=== PATIENT | male | born 1955 | race Caucasian/White ===

== ENCOUNTER → 2018-11-30 09:02 | Outpatient (CLI) | payer OTHER, SELFPAY ==
[2018-11-30 09:19] LABS: Bacteria Urine None Seen; RBC Urine None Seen (0-5/HPF); WBC Urine None Seen (0-5/HPF)
[2018-11-30 09:39] LABS: Hematocrit 44.4 % (41-53); Hemoglobin 14.7 g/dL (13.5-17.5); Mean Corpuscular Hemoglobin 28.8 PG (26-34); Mean Corpuscular Volume 87.1 fL (80-100); Platelet Count 311 X10^3/uL (150-400); Red Cell Distribution Width 13.5 % (11.6-14.8); White Blood Cell Count 7.7 X10^3/uL (4.5-11.0)
[2018-11-30 09:44] LABS: Appearance Urine UA CLEAR; Bilirubin Urine UA NEGATIVE (NEGATIVE); Color Urine UA YELLOW; Glucose Urine UA NEGATIVE (Negative); Ketones Urine UA TRACE (NEGATIVE); Leukocyte Esterase Urine UA NEGATIVE (NEGATIVE); Nitrite Urine UA NEGATIVE (Negative); Occult Blood Urine UA NEGATIVE (Negative); Protein Urine UA NEGATIVE (Negative); Urobilinogen Urine UA 0.2 E.U./dL (0.2)
[2018-11-30 09:47] LABS: BUN Creatinine Ratio 27.5 (6-22); Blood Urea Nitrogen 22 mg/dL (9-20); Calcium 9.5 mg/dL (8.4-10.2); Carbon Dioxide 27 mmol/L (22-32); Chloride 103 mmol/L (98-107); Estimated Glomerular Filt Rate > 60.0 mL/min (>60); Glucose 108 mg/dL (80-110); HEMOLYSIS 16 (0-50); Potassium 4.2 mmol/L (3.4-5.1); Sodium 141 mmol/L (137-145)
[2018-11-30 09:52] LABS: Hemoglobin A1C% w Est Avg Glu 5.8 % (4.0-6.0)
[2018-11-30 09:53] LABS: Culture Indicated Urine Cult Not Indicated; Urine Comments Microscopic Normal
[2018-11-30 10:05] LABS: Erythrocyte Sedimentation Rate 3 MM/HR (0-15)
== END ==
PROVIDERS: Visit Provider Orthopaedic Surgery
DX: N39.0 Urinary tract infection, site not specified (principal); R73.9 Hyperglycemia, unspecified; Z01.818 Encounter for other preprocedural examination
CPT/HCPCS: 36415; 80048; 81001; 83036; 85027; 85651

== ENCOUNTER 2018-12-15 09:39 | Inpatient (IN) | payer OTHER, SELFPAY ==
[2018-12-06 13:47] VITALS: BMI 30.4
[2018-12-15] VITALS (14 sets, daily range): BP systolic 95–142; BP diastolic 62–96; PULSE 66–89; RESP 10–20; TEMP 36.3–36.6; O2SAT 92–99; BMI 29.2
--- NOTE | 2018-12-15 | DI.RAD.S_ITS ---
PROCEDURE: XR PELVIS 1-2V INDICATIONS: INTEROPERTATIVE LEFT HIP TECHNIQUE: Intra-operative view of the pelvis and hip acquired. COMPARISON: None. FINDINGS: Bones: Intraoperative devices prior to placement of arthroplasty prostheses are in expected positions. No fractures or suspicious bony lesions. Soft tissues: Overlying surgical retractors are present, along with other intraoperative changes. IMPRESSION: Left total hip arthroplasty with anatomic alignment. Dictated by: Ney Messer M.D. on 12/15/2018 at 18:01 Approved by: Ney Messer M.D. on 12/15/2018 at 18:01
--- NOTE | 2018-12-15 09:07 | DI.RAD.S_ITS ---
PROCEDURE: XR HIP W PEL IF DONE LT 2V INDICATIONS: Postop left total hip arthroplasty TECHNIQUE: AP pelvis and lateral view of the left hip acquired. COMPARISON: None. FINDINGS: Bones: Patient is status post left hip arthroplasty, with hardware components in expected positions. The hip joint appears congruent. The visualized bony structures appear intact. Soft tissues: Overlying postoperative changes are noted. No suspicious soft tissue densities. IMPRESSION: Post left total hip arthroplasty changes with anatomic alignment. Dictated by: Ney Messer M.D. on 12/15/2018 at 18:42 Approved by: Ney Messer M.D. on 12/15/2018 at 18:43
[2018-12-15] MEDS: ACETAMINOPHEN 325 MG TABLET 975 MG PO ×2 (10:22→21:25)
[2018-12-15] MEDS: PREGABALIN 75 MG CAPSULE PO (10:25)
[2018-12-15] MEDS: LACTATED RINGERS 1,000 ML 42 ML IV ×2 (10:43→17:20)
[2018-12-15] MEDS: VANCOMYCIN 1,000 MG/200 ML FROZ.PIGGY 200 MG IV (10:54)
--- NOTE | 2018-12-15 14:45 | SUR.PREOP ---
Surgery delayed with add on case. Patient sleeping, tolerated time well. Void just now. About half of the Vanco in when stopped at 1130. Restarted at [address] Mahajan.
[2018-12-15] MEDS: CEFAZOLIN 2 GM/100 ML FROZ.PIGGY IV ×2 (15:19→22:25)
--- NOTE | 2018-12-15 15:31 | PM.PREOP ---
Pre-operative Note Interval Note History & Physical reviewed/Exam performed by Physician: Yes Changes to H&P: No
--- NOTE | 2018-12-15 15:31 | PM.OP.1 ---
Operative Date/Time/Diagnoses Date of procedure: 12/15/18 Time of procedure: 15:31 Pre-op diagnosis: left hip post traumatic OA Post-op diagnosis: same Procedure & Clinicians Procedure: Left total hip arthroplasty Same procedure as scheduled: Yes Indications: The patient has had progressively worsening left hip pain with radiographic changes consistent with arthritis. Non-operative management has failed and the patient has requested total hip replacement. The risks, benefits and alternatives to surgery were discussed with the patient prior to proceeding. Risks discussed included, but were not limited to, failure to relieve pain, leg length discrepancy, dislocation, stiffness, infection, nerve damage, deep venous thrombosis, pulmonary embolism, stroke, coma, heart attack, permanent paralysis and , as well as the potential need for eventual revision of the prosthetic. Surgeon: Rosalva Mahajan Aviation Maintenance Technician: Gris Joseph Anesthesia Type: General and Spinal Operative Notes Findings: Severe left hip osteoarthritis, good stability, adequate proximal femoral bone for uncemented prosthesis Closure Type: primary Specimen(s): other (Culture canal femoral) Prosthetic devices, grafts, tissues, transplants, or devices: Mhaajan and Nephew 60 R3 cup, 40 mm head +8 sleeve, high offset SMF femoral component size 4 Applied: drain(s) Estimated Blood Loss (mL): 250 Blood products transfused: none Procedure in detail: The patient was seen in the pre-operative area, where the patient identified the left hip as the operative site and this was marked with my initials. The patient received pre-operative antibiotics and was taken to the operating room and placed on the operative table in the right lateral decubitus position after satisfactory anesthesia. A realtime court reporter out was performed. The left leg was prepared from the ankle to the iliac crest with ChloroPrep in the usual fashion and draped through sterile drapes. The hip was approached through an approximately 20 cm incision centered over the greater trochanter and curving gently posteriorly as it went proximally incorporating the patient's previous surgical incision. This was carried sharply to the fascia deepthi, which was divided and retracted with a self retaining retractor. The trochanteric bursa was excised with care being taken to avoid the sciatic nerve, which was identified and protected throughout the case. there was some scarring along the abductors from the patient's prior femoral fracture and some heterotopic ossification at the trochanteric region in the hip abductors. The heterotopic ossification was resected. The short external rotators were incised and the capsulomuscular flap was raised and tagged for later repair. The hip was dislocated, and a femoral neck osteotomy performed approximately 25 mm above the lesser trochanter with a high femoral neck cut for the SMF prosthesis. the femur was meticulously mobilized in order to allow full visualization of the greater trochanter the neck and the lesser trochanter. the cutting jig was specifically used. Retractors were placed around the femur. The canal was opened with a box cutting osteotome, followed by a T handled reamer. The tract of the previous intramedullary nail was carefully defined. There was some scar in the inter medullary canal and along the track and of the membrane which was removed and sent for culture and sensitivity. A combination of the box osteotome measured well as a rongeur was used to remove the neocortex around the previous nails tract. The starting cutting broach was then used, followed by sequential broaching until there was good stability of the broach in the femur. impaction broaches were placed. Retractors were placed to expose the acetabulum. The labrum and central soft tissues were removed. there were large osteophytes anteriorly as well as posteriorly. Reaming was performed initially going up in 2 mm increments, then 1 mm increments until good bite was obtained with an odd sized reamer. The cup 1 mm larger than the last reamer was then inserted using the appropriate anteversion guides. A trial neutral liner was placed. The broach was placed in the canal. A trial head and neck were then placed and the hip relocated and checked for leg length and stability. An intraoperative film confirmed the component position and no evidence of fracture. The patient was stable in the position of sleep, of squatting, and could be put through a range of motion with 45 degrees internal rotation without dislocation. At 90 degrees flexion, internal rotation to 60 was possible before dislocation. This was felt to be satisfactory and the appropriate components were opened, and the trials were removed. it was trialed with a 36 mm head in and cup but the plan was to go up to 40 mm liner. The patient was noted to be short preoperatively and we specifically discussed that he would like if possible for me to slightly lengthen his leg. The acetabular liner was impacted into position. The final stem was then impacted into the prepared femoral canal. A brief Betadine soak was performed while trialing with head options. The hip was meticulously irrigated with normal saline. Finally the femoral head was impacted onto the stem. a +8 mm head was selected which showed sabianism of some of his leg length he, the fairly normal shuck, no tendency towards posterior impingement and normal extension and he was stable at 45? to about 80? of internal rotation at 90? he was stable to about 70? of internal rotation. The acetabulum was cleared of all material and the hip relocated one final time. The capsulomuscular flap was then repaired to the greater trochanter though an awl hole using the tag sutures. The short external rotators were repaired with a black braided nylon. A deep drain was placed and brought out anteriorly. The fascia deepthi was closed with black braided nylon. The subcutaneous layer was closed with barbed sutures and SteriStrips. An Aquacel Ag dressing was applied and the patient was taken to recovery having tolerated the procedure well. Complications: none Condition: stable Disposition: Acute Care Plan for aftercare: The patient will be maintained on a standard total hip replacement protocol with weight bearing as tolerated and posterior hip precautions. The patient will receive Lovenox and sequential compression devices for DVT prophylaxis. The patient will be discharged home when safe for the home environment.
[2018-12-15] MEDS: TRANEXAMIC ACID 1,000 MG VIAL 1000 MG INJ ×2 (15:52→17:22)
--- NOTE | 2018-12-15 16:02 | SUR.OPER ---
Lateral on padded OR bed. Gel axillary roll. Arms secured on padded armboard with pillow supporting top arm. Padded hip positioner braces x4 - anterior and posterior chest and pelvis. Additional gel pad used anterior pelvis. Gel pad under bottom leg from knee to foot and secured with tape over sheet.
[2018-12-15] MEDS: BUPIVACAINE LIPOSOME 266 MG/20 ML VIAL INJ (16:12)
[2018-12-15] MEDS: BUPIVACAINE 0.5% W/ EPI (PF) VIAL 30 ML INJ (16:14)
[2018-12-15] MEDS: fentaNYL 100 MCG/2 ML INJ 50 MCG IV ×2 (18:37→18:47)
[2018-12-15] MEDS: LACTATED RINGERS 1,000 ML 125 ML IV (19:39)
[2018-12-15] MEDS: OXYCODONE IR 5 MG TABLET PO ×2 (19:50→22:59)
[2018-12-15] MEDS: ACYCLOVIR 200 MG CAPSULE PO (21:25)
[2018-12-15] MEDS: ONDANSETRON 4 MG/2 ML INJ IV (21:25)
[2018-12-15] MEDS: DOCUSATE 100 MG CAPSULE PO (21:26)
[2018-12-16] VITALS: BP 105/66; PULSE 88; RESP 16; TEMP 36.9; O2SAT 94
[2018-12-16] MEDS: OXYCODONE IR 5 MG TABLET PO ×5 (02:17→14:22)
[2018-12-16] MEDS: LACTATED RINGERS 1,000 ML 125 ML IV (04:05)
[2018-12-16 05:42] LABS: Hematocrit 37.4 % (41-53); Hemoglobin 12.4 g/dL (13.5-17.5)
[2018-12-16 05:43] VITALS: BP 110/72; PULSE 81; RESP 16; TEMP 36.7; O2SAT 97
[2018-12-16] MEDS: CEFAZOLIN 2 GM/100 ML FROZ.PIGGY IV (06:37)
[2018-12-16 07:36] VITALS: PULSE 72; RESP 16; O2SAT 94
[2018-12-16 08:00] VITALS: BP 115/69; PULSE 77; RESP 16; TEMP 36.9
[2018-12-16] MEDS: ACETAMINOPHEN 325 MG TABLET 975 MG PO ×2 (08:38→14:22)
[2018-12-16] MEDS: DOCUSATE 100 MG CAPSULE PO (08:39)
[2018-12-16] MEDS: FINASTERIDE 5 MG TABLET PO (08:39)
[2018-12-16] MEDS: ENOXAPARIN 40 MG/0.4 ML SYRINGE SUBCUT (08:40)
[2018-12-16] MEDS: ACYCLOVIR 200 MG CAPSULE PO (08:40)
[2018-12-16] MEDS: ATORVASTATIN 20 MG TABLET PO (08:40)
--- NOTE | 2018-12-16 09:41 | PC.NURSE ---
Addendum entered by Esther Anne R.N. 12/16/18 14:36: DC - reviewed dc instructions with pt and family, medications had been picked up earlier, states l hip pain 5 on scale 0/10, given oxycodone 5mg and 975mg tylenol now prior to dc, no drainage noted from old hemovac site, belongings gathered, including cell phone, cane, glasses, tsf to and head usher escorted to family car. Original Note: Addendum entered by Esther Anne R.N. 12/16/18 13:43: DC - after lunch, pt states he would like to dc home this afternoon, hep lock dc'd, Radha had given the scripts to the family to fill earlier this am. Original Note: Addendum entered by Esther Anne R.N. 12/16/18 11:09: INTEG/VITALS - per Radha MARSHALL-C, dc hemovac, removed w/o difficulty, cath tip intact, applied pressure, some serosang drainage continuing, placed 4x4 folded for pressure w/op site over, bp prior to mobilizing with phys therapy 123/79, ivf saline locked. Original Note: Addendum entered by Esther Anne R.N. 12/16/18 09:45: RESP - IS provided by ortho clinic not brought to hospital, family req to bring in. Original Note: AM NOTE -pt is alert, states pain 2-3 on scale 0/10, 2l 98%, removed for breakfast and sat maintained 96%, voiding urinal, no nausea, leslie gen diet, hemovac compressed with serosang drainage in container, aquacell cdi, + flatus, active bt, discussed constipation and use narcotics, given 5mg oxycodone for am phys therapy.
--- NOTE | 2018-12-16 10:25 | P.DS_ITS ---
History of Present Illness Date Patient Seen: 12/16/18 Time Patient Seen: 10:25 Chief complaint: [id number] left Narrative: The patient has had progressively worsening left hip pain with radiographic changes consistent with arthritis. Non-operative management has failed and the patient has requested total hip replacement. The risks, benefits and alternatives to surgery were discussed with the patient prior to proceeding. Risks discussed included, but were not limited to, failure to relieve pain, leg length discrepancy, dislocation, stiffness, infection, nerve damage, deep venous thrombosis, pulmonary embolism, stroke, coma, heart attack, permanent paralysis and , as well as the potential need for eventual revision of the prosthetic. Discharge Providers Date of admission: 12/15/18 09:39 Discharge Date: 12/16/18 Primary care physician: Willard Mosqueda Consults: 12/15/18 09:07 Consult to Anesthesiology Routine Comment: Consulting Provider: Anesthesiologist Reason for consultation: Regional block for post operative pain control 12/15/18 19:34 Consult to Discharge Planning Routine Comment: Consult to Physical Therapy Evaluate & Treat Comment: Physician Instructions: post op JOSH protocol Consult to Respiratory Therapy Evaluate & Treat Comment: Physician Instructions: Evaluate and treat Discharge provider: Gris Joseph PA-C Summary Discharge Diagnosis: s/p left total hip arthroplasty posterior approach BPH Hyperlipidemia Hospital Course: was admitted for left total hip arthroplasty posterior approach with Dr. Mahajan. He consented to procedure. Hospital course was u nremarkable. On postop day 1. Patient was ready to discharge home with family. He is eating and voiding without difficulty or assistance. He has been up and ambulating with physical therapy. His pain is well controlled with oxycodone and Tylenol. He has a significant allergy to aspirin and will be discharged home with Lovenox for VTE prophylaxis. Hemovac drain was removed prior to discharge. Status at Discharge Functional status at discharge: uses cane/walker Exam Vital Signs (past 8 hours): - 12/16/18 05:43 12/16/18 07:36 12/16/18 08:00 Temperature 98.0 F 98.4 F Pulse Rate 81 72 77 Respiratory Rate 16 16 16 Blood Pressure 110/72 115/69 Pulse Oximetry 97 94 Oxygen Delivery Method Room Air Oxygen Flow Rate 2 Narrative Exam Narrative: Patient is sitting up in bed in no acute distress. He is alert and oriented x3. Dressing on the left hip is CDI. Hemovac drain in place. Calves are soft, compressible, nontender bilaterally. Pulses are symmetrical. He is able to actively dorsiflex and plantar flex. His pain was well-controlled last night. No complaints this morning. Objective Labs Result Diagrams: 12/16/18 05:30 Labs: Laboratory Results - last 24 hr 12/16/18 05:30 Hgb 12.4 L Hct 37.4 L Discharge Plan Discharge Plan Patient Disposition: Home Discharge Med Rec/Prescriptions Prescriptions: New acetaminophen 325 mg Tablet 975 mg PO TID Qty: 60 RF: 0 docusate sodium 100 mg Capsule 100 mg PO BID Qty: 60 RF: 0 oxycodone 5 mg Tablet 5 mg PO Q4-6H PRN (Reason: pain, severe) Qty: 45 RF: 0 enoxaparin [Lovenox] 40 mg/0.4 mL Syringe 40 mg subcut DAILY 9 Days RF: 0 Continued atorvastatin 20 mg Tablet 20 mg PO DAILY RF: 0 acyclovir 200 mg Capsule 200 mg PO BID RF: 0 finasteride 5 mg Tablet 5 mg PO DAILY RF: 0 Follow up/Referrals: Rosalva Mahajan MD [Physician] - Provider Discharge Instructions Activity: Posterior hip precautions. Weightbearing as tolerated. Cold/Heat Therapy: as needed Skin/Wound/Dressing Care Report to your healthcare provider any signs of infection, such as:: chills, fever and increased pain Dressing: Leave in place until post op appointment Visit Report/Discharge Packet Instructions: DI for Hip Replacement Discharge Data Primary Care Provider: Willard Mosqueda Attending Provider: Rosalva Mahajan Admit Date/Time: 12/15/18 09:39
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
--- NOTE | 2018-12-16 12:51 | CM.DANOTE ---
Discharge Planning/Care Management CM Discharge Assessment Start: 12/16/18 12:50 Freq: Status: Active Protocol: Document 12/16/18 12:51 ITV (Rec: 12/16/18 12:51 ITV [id number]) Discharge Planning Assessment Advance Directives? No: Declines further information History Provided By Patient Medical Record Prior Living Arrangements House Household Members none Review Status In Process Next Review Type Continued Stay Review Pre-Anesthesia Assessment Start: 12/06/18 13:46 Freq: Status: Complete Protocol: Document 12/06/18 13:47 CAB (Rec: 12/06/18 14:41 CAB [id number]) Pre-Anesthesia Assessment Patient Information Reviewed Via Phone Assessment Assessment Completed With Patient Diagnostic Results BMP/CMP CBC EKG Other Comment A1c. Labs @[facility] 11/30/18, outside ECG scanned to record Primary Care Provider Willard Mosqueda Medical Clearance Received Yes Seen Specialist in Last 12 Months Yes Specialist Seen Orthopedist Comment PCP clearance 11/04/18 scanned to record Primary Language Croatian Real Estate Analyst Required No Height 182.88 cm Weight 101.605 kg Body Mass Index (BMI) 30.4 Hearing Ability Normal Visual Assist Magnifying Glass Dentition Type Teeth, Natural Present Teeth, Missing Barriers to Learning None Hx Anesthesia Reactions No Hx Family Anesthesia Reaction No Hx Malignant Hyperthermia No Hx Blood Transfusions No Anesthesia Review Requested No Color Weigher No alcohol intake current alcohol intake frequency 0-2 drinks per day Smoking Status Current some day smoker Tobacco type cigars Substance Use Type does not use Pain Present Pain Reported Musculoskeletal Symptoms Abnormal Gait Difficulty Walking Joint Pain Muscle Cramps History of Falling (Recent or History of No ) Patient is completely paralyzed or No completely immobile Mental Status Oriented to own ability Is patient on oxygen? No Does patient have PELAEZ/SOB No Hx Sleep Apnea No Currently Taking a Beta Vaishali No Can You Climb a Flight of Stairs Without Yes SOB Hx Chest Pain No Hx SOB No Hx Syncope or Dizziness Yes: Occasional dizziness w/ postional changes Anti-Coagulant Therapy No Has a Business Analysis Analyst No Cardiac Testing No Hx Pacemaker/ICD No Pacemaker Rep Required? No Cardiac Clearance Received Not Applicable Diet Type At Home Regular dysphagia No Urinary Catheter Present No Hx Urinary Self Catheterization No Diabetes No HgbA1C 5.8 Date 11/30/18 Hx Drug Resistant Organism No Presence of External or Internal Medical Yes: Right knee prosthesis, Devices wire in jaw Have you traveled outside the [facility] in the last 30 days? Marital Status Lives With none Prior Living Arrangements House Comment Home on [address], lives part in boat Feels Safe in Current Environment Yes Been Physically Hurt or Threatened By a No Person in Current Environment Do you have thoughts of harming yourself None or others? Are you currently considering suicide? No Do you have a plan to hurt yourself or No Plan others? Do You Have Any Spiritual Beliefs That No May Affect Your HC Choices? Do You Have Any Cultural Practices That No May Affect Your HC Choices? Spiritual Referral None Who Can We Speak to About Patient's Care Family, friends Identifying Code for Release of Patient Declines to issue Information Health Care Proxy/Next of Kin Jonas (son)Yodit (daughter in-law) Health Care Proxy Phone Number [facility]: [phone] [facility]: [phone] Emergency Contact Name Jonas (son)Yodit (daughter in-law) Daphney (daughter) Emergency Contact Phone Number [facility]: [phone] [facility]: [phone] Daphney: Advance Directives? No: Declines further information PAC Instructions Durable medical equipment Medications to take/avoid Nasal antibiotic No ETOH/petroleum product on skin DOS NPO Pre-surgical wash Sturdy shoes/comfortable clothes Do not bring valuables and remove jewelry
--- NOTE | 2018-12-16 12:53 | CM.DANOTE ---
Discharge Planning/Care Management DCP: assessment: case received, EMR reviewed and d/c to home order noted. Pt is a 63 year old male who admitted yesterday for a planned L JOSH/posterior. Surgeon: Dr. Mahajan. PCP: Willard Mosqueda PT notes are not yet available but discussed case now with PT Karuna: she noted that she worked with pt this morning and including stairs and she had cleared him for d/c home. Met now with pt and his daughter in law. Introduced self and role. Pt notes he feels very ready to go home today. He does live on [facility] but he and his son and DIL have booked an Air BNB in [place] where they will stay until pt is ready to return to his home. RN Esther is updated. P: at his point: home today CM Discharge Assessment Start: 12/16/18 12:50 Freq: Status: Active Protocol: Document 12/16/18 12:51 ITV (Rec: 12/16/18 12:51 ITV [id number]) Discharge Planning Assessment Advance Directives? No: Declines further information History Provided By Patient Medical Record Prior Living Arrangements House Household Members none Review Status In Process Next Review Type Continued Stay Review Pre-Anesthesia Assessment Start: 12/06/18 13:46 Freq: Status: Complete Protocol: Document 12/06/18 13:47 CAB (Rec: 12/06/18 14:41 CAB [id number]) Pre-Anesthesia Assessment Patient Information Reviewed Via Phone Assessment Assessment Completed With Patient Diagnostic Results BMP/CMP CBC EKG Other Comment A1c. Labs @[facility] 11/30/18, outside ECG scanned to record Primary Care Provider Willard Mosqueda Medical Clearance Received Yes Seen Specialist in Last 12 Months Yes Specialist Seen Orthopedist Comment PCP clearance 11/04/18 scanned to record Primary Language Serbian Bleacher [employer] Required No Height 182.88 cm Weight 101.605 kg Body Mass Index (BMI) 30.4 Hearing Ability Normal Visual Assist Magnifying Glass Dentition Type Teeth, Natural Present Teeth, Missing Barriers to Learning None Hx Anesthesia Reactions No Hx Family Anesthesia Reaction No Hx Malignant Hyperthermia No Hx Blood Transfusions No Anesthesia Review Requested No Agency Recruiter No alcohol intake current alcohol intake frequency 0-2 drinks per day Smoking Status Current some day smoker Tobacco type cigars Substance Use Type does not use Pain Present Pain Reported Musculoskeletal Symptoms Abnormal Gait Difficulty Walking Joint Pain Muscle Cramps History of Falling (Recent or History of No ) Patient is completely paralyzed or No completely immobile Mental Status Oriented to own ability Is patient on oxygen? No Does patient have PELAEZ/SOB No Hx Sleep Apnea No Currently Taking a Beta Vaishali No Can You Climb a Flight of Stairs Without Yes SOB Hx Chest Pain No Hx SOB No Hx Syncope or Dizziness Yes: Occasional dizziness w/ postional changes Anti-Coagulant Therapy No Has a Zookeeper No Cardiac Testing No Hx Pacemaker/ICD No Pacemaker Rep Required? No Cardiac Clearance Received Not Applicable Diet Type At Home Regular dysphagia No Urinary Catheter Present No Hx Urinary Self Catheterization No Diabetes No HgbA1C 5.8 Date 11/30/18 Hx Drug Resistant Organism No Presence of External or Internal Medical Yes: Right knee prosthesis, Devices wire in jaw Have you traveled outside the [facility] in the last 30 days? Marital Status Lives With none Prior Living Arrangements House Comment Home on [address], lives part in boat Feels Safe in Current Environment Yes Been Physically Hurt or Threatened By a No Person in Current Environment Do you have thoughts of harming yourself None or others? Are you currently considering suicide? No Do you have a plan to hurt yourself or No Plan others? Do You Have Any Spiritual Beliefs That No May Affect Your HC Choices? Do You Have Any Cultural Practices That No May Affect Your HC Choices? Spiritual Referral None Who Can We Speak to About Patient's Care Family, friends Identifying Code for Release of Patient Declines to issue Information Health Care Proxy/Next of Kin Jonas (son)Yodit (daughter in-law) Health Care Proxy Phone Number [facility]: [phone] [facility]: [phone] Emergency Contact Name Jonas (son)Yodit (daughter in-law) Daphney (daughter) Emergency Contact Phone Number [facility]: [phone] [facility]: [phone] Daphney: [phone] Advance Directives? No: Declines further information PAC Instructions Durable medical equipment Medications to take/avoid Nasal antibiotic No ETOH/petroleum product on skin DOS NPO Pre-surgical wash Sturdy shoes/comfortable clothes Do not bring valuables and remove jewelry
== END 2018-12-16 14:38 | disposition home or self-care (01) | DRG 470 ==
PROVIDERS: Admitting Provider Orthopaedic Surgery; PCP Family Medicine Sports Medicine; Visit Provider Orthopaedic Surgery
PROC: 0SRB0JZ Replacement of Left Hip Joint with Synthetic Substitute, Open Approach (ICD-10-PCS; CPT 27130; principal; 2018-12-15 11:45)
DX: M16.52 Unilateral post-traumatic osteoarthritis, left hip (principal); E78.5 Hyperlipidemia, unspecified; Z96.641 Presence of right artificial hip joint; F17.210 Nicotine dependence, cigarettes, uncomplicated
CPT/HCPCS: 36415; 72170; 73502; 85014; 85018; 87070; 87075; 87077; 87186; 87205; 94760; 97116; 97161; 97530; C1776; C9290; J0690; J1100; J1650; J2250; J2405; J2704; J3010; J3370

== ENCOUNTER 2018-12-23 09:45 | Outpatient (RCR) | payer OTHER, SELFPAY ==
[2018-12-15 21:29] VITALS: BMI 29.2
--- NOTE | 2018-12-20 10:35 | PT.OPPOC ---
Current Diagnoses Unilateral post-traumatic osteoarthritis, left hip (12/23/18) Provider Visit Care Team Role Provider Type Willard Mosqueda Primary Care Provider Non-Staff Specialty: Medical Address: [address] , [place], [address] Email: Enzo Lopes PA-C Attending Provider Advanced Fire Extinguisher Charger Specialty: Orthopedic Surgery Address: [address], [place], [address] Email: [email or web address] Plan Of Care PT-OP-T Assessment and Plan Start: 12/20/18 08:56 Freq: Status: Active Protocol: Document 12/23/18 16:33 [facility] (Rec: 12/23/18 16:42 [facility] [email or web address]) Physical Therapy Assessment Assessment Summary Assessment Pt is discharged from this clinic to resume PT with his son and dgt in law in [place]. He is improving with gait with cueing and required min cueing for exercises. He is likely to cont to progress with cont PT Physical Therapy Plan Discharge Physical Therapy Discharge Reasons Patient Request Discharge Comments Pt moving to [place] instead of staying local for rehab Plan of Care Dates Plan of Care Start Date 12/20/18 Plan of Care End Date 02/19/19 Please Sign and Return: I have reviewed this Plan of Care and certify that the skilled therapy services above are required to meet the patient?s needs. Physician Signature Date Printed Name and Credentials Clinical Instructor Signature Printed Name and Credentials
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
--- NOTE | 2018-12-20 19:04 | PT.OPPOC ---
Current Diagnoses Unilateral post-traumatic osteoarthritis, left hip (12/20/18) Difficulty in walking, not elsewhere classified (12/20/18) Weakness (12/20/18) Provider Visit Care Team Role Provider Type Willard Mosqueda Primary Care Provider Non-Staff Specialty: Medical Address: [address] , [place], [address] Email: Enzo Lopes PA-C Attending Provider Advanced Tombstone Polisher Specialty: Orthopedic Surgery Address: [address] [place] [address], [place], [address] Email: [email or web address] Plan Of Care PT-OP-T Assessment and Plan Start: 12/20/18 08:56 Freq: Status: Active Protocol: Document 12/20/18 18:40 [facility] (Rec: 12/21/18 19:03 [facility] [id number]) Physical Therapy Assessment Rehab Potential Rehabilitation Potential Excellent Evaluation Complexity Number of Personal Factors/Comorbidities 3 or More Number of Body Systems Impaired 4 or More Clinical Presentation at Evaluation Evolving Impairments Impairments Activity Tolerance Balance Functional Activities Functional Mobility Gait Pain Posture ROM Soft Tissue Mobility Strength Goals strength Short Term Goal (STG) Pt will be indep with HEP STG Duration 01/19/19 Top Frame Maker Goal (LTG) Pt will have 5/5 LE and will be able to walk on the beach without difficulty. LTG Duration 02/19/19 gait Short Term Goal (STG) Pt will be able to amb without AD with no gait deviations safely. STG Duration 01/19/19 Top Frame Maker Goal (LTG) Pt will be able to amb up/down stairs reciprocally without rail safely. LTG Duration 02/19/19 LEFS Impairment LEFS Short Term Goal (STG) Pt will inc to score of 42 to show improved functional independence. STG Duration 01/19/19 Top Frame Maker Goal (LTG) Pt will inc to score of 60 to demonstrate improved functional ability. LTG Duration 02/19/19 Assessment Summary Assessment Pt is 5 days s/p L JOSH with good pain control, compliance with precautions & exercises & is very motivated to return home to [facility] independently. He has gait limitations and deviations, decreased strength and ROM and overall functional limitations that will require skilled PT to progress pt to return to typical level of function. Physical Therapy Plan Frequency and Duration Frequency of Treatment 2x/Week Duration of Treatment 2 months Plan of Care Start Date 12/30/18 Plan of Care End Date 03/01/19 Therapeutic Interventions Therapeutic Interventions Aquatic Therapy Balance Training Gait Training Home Exercise Program Joint Mobilizations Manual Therapy Neuromuscular Re-education Patient/Caregiver Education Self-Care/Home Management Soft Tissue Mobilization Taping Therapeutic Activities Therapeutic Exercises Modalities Cold Pack/Ice Massage Electric Stimulation Hot Packs Infrared Therapy Iontophoresis Ultrasound Next Visit Focus/Plan Next Note Type Treatment Note Next Visit Plan Advance standing strength and overall L hip strength & balance s/p L JOSH; work on gait mechanics Plan of Care Dates Plan of Care Start Date 12/30/18 Plan of Care End Date 03/01/19 Please Sign and Return: I have reviewed this Plan of Care and certify that the skilled therapy services above are required to meet the patient?s needs. Physician Signature Date Printed Name and Credentials Clinical Instructor Signature Printed Name and Credentials
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
== END 2019-01-09 14:33 | disposition home or self-care (01) ==
LOC: PHYS 09:45
PROVIDERS: PCP Family Medicine Sports Medicine; Visit Provider Physician Assistant
DX: M16.52 Unilateral post-traumatic osteoarthritis, left hip (principal)
CPT/HCPCS: 97110; 97112; 97116; 97162

== ENCOUNTER 2019-03-02 08:15 | Outpatient (RCR) | payer OTHER, SELFPAY ==
[2018-12-15 21:29] VITALS: BMI 29.2
--- NOTE | 2019-01-24 17:29 | PT.OPPOC ---
Current Diagnoses Unilateral primary osteoarthritis, left hip (01/24/19) Provider Visit Care Team Role Provider Type Willard Mosqueda Primary Care Provider Non-Staff Specialty: Medical Address: [address] , [place], [address] Email: Rosalva Mahajan MD Attending Provider Physician Specialty: Orthopedic Surgery Address: [address] [place] [address], [place], [address] Email: [email or web address] Plan Of Care PT-OP-T Assessment and Plan Start: 01/24/19 12:56 Freq: Status: Active Protocol: Document 01/24/19 12:57 [facility] (Rec: 01/24/19 13:00 EA [id number]) Physical Therapy Assessment Rehab Potential Rehabilitation Potential Excellent Evaluation Complexity Number of Personal Factors/Comorbidities 0 Number of Body Systems Impaired 1-2 Clinical Presentation at Evaluation Stable Impairments Impairments Activity Tolerance Functional Mobility Gait Pain ROM Soft Tissue Mobility Strength Goals One Impairment Distance amb Detention Goal (LTG) Patient ambulate > 2 miles LTG Duration 4 wks strength Short Term Goal (STG) Pt will be indep with HEP STG Duration 2 wks Art Historian Goal (LTG) Pt will have 5/5 LE and will be able to walk on the beach without difficulty. LTG Duration 4 wks gait Impairment Impaired mobility Short Term Goal (STG) Pt will be able to amb without AD with no gait deviations safely. STG Duration 2 wk Detention Goal (LTG) Pt will be able to amb up/down stairs reciprocally without rail safely. LTG Duration 4 wks LEFS Impairment LEFS Short Term Goal (STG) Pt will inc to score of 42 to show improved functional independence. STG Duration 2 wks Detention Goal (LTG) Pt will inc to score of 60 to demonstrate improved functional ability. LTG Duration 4 wks Progress Towards Goals Progress Towards Goals Progressing Toward Goals Assessment Summary Assessment Pleasant 63 y/o M patient who is s/p L JOSH 12/15/18 who is referred for continuation of physical threapy. Assessment reveals decreased hip flexors, ABD and hip rotators strength . ROM reveals decreased hip extension and left pelvic rotation. Gait shows increased right pelvic rotation on right stride with decreased left pelvic rotation with tightness to left hip flexors. Instability of SLS to left also noted. In my professional opinion, patient is progressing steady and will continue to benefit with skilled PT to reach his highest functional mobility. Physical Therapy Plan Frequency and Duration Frequency of Treatment 2x/Week Duration of Treatment 2 months Plan of Care Start Date 01/24/19 Plan of Care End Date 03/21/19 Therapeutic Interventions Therapeutic Interventions Aquatic Therapy Balance Training Gait Training Home Exercise Program Joint Mobilizations Manual Therapy Neuromuscular Re-education Patient/Caregiver Education Self-Care/Home Management Soft Tissue Mobilization Taping Therapeutic Activities Therapeutic Exercises Modalities Cold Pack/Ice Massage Electric Stimulation Hot Packs Infrared Therapy Iontophoresis Ultrasound Next Visit Focus/Plan Next Note Type Treatment Note Next Visit Plan Provide HEP images Plan of Care Dates Plan of Care Start Date 01/24/19 Plan of Care End Date 03/21/19 Please Sign and Return: I have reviewed this Plan of Care and certify that the skilled therapy services above are required to meet the patient?s needs. Physician Signature Date Printed Name and Credentials Clinical Instructor Signature Printed Name and Credentials
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
--- NOTE | 2019-01-30 17:41 | PT.OTN ---
Current Diagnoses Unilateral primary osteoarthritis, left hip (01/30/19) Physical Therapy Treatment Note PT-OP-A Visit Information Start: 01/24/19 12:56 Freq: Status: Active Protocol: Document 01/30/19 16:45 EA (Rec: 01/30/19 16:59 EA [id number]) Out-Patient Physical Therapy Visit Information Visit Information Visit Type Treatment Note Visit Start Time 16:00 Visit Stop Time 16:45 Total Visit Minutes 45 Visit Number 2 PT-OP-B Current Condition Start: 01/24/19 12:56 Freq: Status: Active Protocol: Document 01/24/19 16:02 EA (Rec: 01/25/19 14:13 EA [id number]) Current Condition History of Current Condition Onset Date s/p JOSH 12/15/18 Current Complaints hip weakness and and slight pain History of Current Condition Patient is s/p JOSH 12/15/18 and had formal PT at [facility]; states he has great recovery in terms of mobility and pain. He is currently staying at [place] and intended to stay until he recovers fully. Prior Treatments and Tests 1- 5 weeks post hip surgery PT treament at and [place]. 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 Functional Limitations- Mobility/Gait independent with no AD but Limited with long distance ambulation and uneven surfaces Functional Limitations- Work/School Independent Functional Limitations- Recreation/ Limited daily walks to less Hobbies than a mile PT-OP-C Subjective Start: 01/24/19 12:56 Freq: Status: Active Protocol: Document 01/30/19 16:45 EA (Rec: 01/30/19 16:59 EA [id number]) OP-PT Subjective Patient Comments Patient Comments Pt reports hard to initiate movement after in long sitting position. Patient Reported Progress Improving PT-OP-D Balance Start: 01/24/19 12:56 Freq: Status: Active Protocol: Document 01/24/19 17:35 EA (Rec: 01/25/19 14:13 EA [id number]) Balance Tests Single Limb Standing Single Limb- Right > 10 secs Single Limb- Left < 4 secs PT-OP-F Manual Assessment Start: 01/24/19 12:56 Freq: Status: Active Protocol: Document 01/24/19 16:02 EA (Rec: 01/25/19 14:13 EA [id number]) Manual Assessments Soft Tissue Assessment Soft Tissue Mobility Assessment Tight hip flexors, RF. PT-OP-G Mobility & Gait Start: 01/24/19 12:56 Freq: Status: Active Protocol: Document 01/24/19 16:02 EA (Rec: 01/25/19 14:13 EA [id number]) OP Mobility Evaluation Bed Mobility Rolling Indep Supine to and from Sit Indep Transfers Sit to Stand indep Bed to Chair Transfers indep Floor Transfers unable OP Gait Assessment Gait Gait Assistance Required: Independent Distance (Feet) 200 Able to Maintain Weight Bearing Status Yes During Gait Assistive Devices Assistive Device None Orthotic/Prosthetic Devices or Brace: No Gait Deviations General Gait Pattern Decreased Stride Length Factors Limiting Gait Function Factors Limiting Gait Function Decreased Strength Limited Range of Motion Comments Gait Comments Increased right pelvic rotation Stair Climbing Evaluation Evaluation Level of Assist On Stairs Independent Devices Stair Climbing Assistive Devices None Technique/Endurance Stair Climbing Direction Ascend and Descend Stair Climbing Technique Step to Step PT-OP-J Posture/Palpation/Skin Start: 01/24/19 12:56 Freq: Status: Active Protocol: Document 01/24/19 16:02 EA (Rec: 01/25/19 14:13 EA [id number]) Palpation Assessment Location One Palpation Location left hip Palpation Findings Soft Tissue Tightness Tenderness Skin Assessment Incisional Assessment Incision Appearance/Comments Wound is close with no signs of secondary healing. PT-OP-K Range of Motion Start: 01/24/19 12:56 Freq: Status: Active Protocol: Document 01/24/19 16:02 EA (Rec: 01/25/19 14:13 EA [id number]) Hip Goniometric Range of Motion Hip Measured in Degrees Right Active Hip ROM WFL Yes Left Active Testing Position Supine Flexion w/Knee Flexed 90 Extension 5 Abduction 20 External Rotation 30 Hip ROM Limitations Hip ROM Limitations Soft Tissue Tightness Comments pre-cautions Knee Goniometric Range of Motion Knee Measured in Degrees Right Knee ROM WFL Yes Left Knee ROM WFL Yes PT-OP-M Strength Start: 01/24/19 12:56 Freq: Status: Active Protocol: Document 01/24/19 16:02 EA (Rec: 01/25/19 14:13 EA [id number]) Hip Strength Hip Manual Muscle Testing Left Flexion (L2) 3+ Fair+ Extension (S1) 4- Good- Abduction 4- Good- Adduction 4 Good External Rotation 4- Good- Internal Rotation 4- Good- Right Reason Not Measured WFL Knee Strength Knee Manual Muscle Testing Right Flexion (S2) 5 Normal Extension (L3) 5 Normal Left Flexion (S2) 5 Normal Extension (L3) 5 Normal PT-OP-Q Treatments Start: 01/24/19 12:56 Freq: Status: Active Protocol: Document 01/30/19 16:45 EA (Rec: 01/30/19 16:59 EA [id number]) Therapeutic Exercises Supine Exercises 2 Supine Exercise Name Bridge w/ Isomet hip ABD Resistance GTB Reps/Minutes x 10 reps x 2 sets 1 Supine Exercise Name SLR Resistance 2# Reps/Minutes x 10 reps x 2 Sidelying Exercises 3 Sidelying Exercise Name Passive stretch to left hip flexors Reps/Minutes x 30SH x 2 reps 2 Sidelying Exercise Name Hip ABD Resistance 2 lbs Reps/Minutes x 10 reps Comments piullow inbet knees 1 Sidelying Exercise Name Clamshell Reps/Minutes x 15 reps x 2 sets Comments stabilize pelvis Sitting Exercises 2 Sitting Exercise Name Hip IR Resistance Lv2 Reps/Minutes x 10 reps x 2 Comments start from ER to neutral range to prevent full IR 1 Sitting Exercise Name Hip ER Resistance Lv2 Reps/Minutes x 12 reps x 2 Standing Exercises 1 Standing Exercise Name Stairs hip flexors stretch Reps/Minutes x 30 SH x 2 reps squat Standing Exercise Name Side step squart Resistance GTB Reps/Minutes x 12 ft x 2 lines PT-OP-T Assessment and Plan Start: 01/24/19 12:56 Freq: Status: Active Protocol: Document 01/30/19 16:45 EA (Rec: 05/20/19 16:59 EA [id number]) Physical Therapy Assessment Assessment Summary Assessment Tolerated treatment well. Cont. with current plan Physical Therapy Plan Next Visit Focus/Plan Next Note Type Treatment Note Next Visit Plan Provide HEP images
--- NOTE | 2019-02-01 17:30 | PT.OTN ---
Current Diagnoses Unilateral primary osteoarthritis, left hip (02/01/19) Physical Therapy Treatment Note PT-OP-A Visit Information Start: 01/24/19 12:56 Freq: Status: Active Protocol: Document 02/01/19 15:13 EA (Rec: 02/01/19 15:17 EA [id number]) Out-Patient Physical Therapy Visit Information Visit Information Visit Type Treatment Note Visit Start Time 14:30 Visit Stop Time 15:15 Total Visit Minutes 40 Visit Number 3 PT-OP-B Current Condition Start: 01/24/19 12:56 Freq: Status: Active Protocol: Document 01/24/19 16:02 EA (Rec: 01/25/19 14:13 EA [id number]) Current Condition History of Current Condition Onset Date s/p JOSH 12/15/18 Current Complaints hip weakness and and slight pain History of Current Condition Patient is s/p JOSH 12/15/18 and had formal PT at [facility]; states he has great recovery in terms of mobility and pain. He is currently staying at [place] and intended to stay until he recovers fully. Prior Treatments and Tests 1- 5 weeks post hip surgery PT treament at and [place]. 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 Functional Limitations- Mobility/Gait independent with no AD but Limited with long distance ambulation and uneven surfaces Functional Limitations- Work/School Independent Functional Limitations- Recreation/ Limited daily walks to less Hobbies than a mile PT-OP-C Subjective Start: 01/24/19 12:56 Freq: Status: Active Protocol: Document 02/01/19 15:13 EA (Rec: 02/01/19 15:17 EA [id number]) OP-PT Subjective Patient Comments Patient Comments Pt reports compliant with HEP and hip precautions. PT-OP-D Balance Start: 01/24/19 12:56 Freq: Status: Active Protocol: Document 01/24/19 17:35 EA (Rec: 01/25/19 14:13 EA [id number]) Balance Tests Single Limb Standing Single Limb- Right > 10 secs Single Limb- Left < 4 secs PT-OP-F Manual Assessment Start: 01/24/19 12:56 Freq: Status: Active Protocol: Document 01/24/19 16:02 EA (Rec: 01/25/19 14:13 EA [id number]) Manual Assessments Soft Tissue Assessment Soft Tissue Mobility Assessment Tight hip flexors, RF. PT-OP-G Mobility & Gait Start: 01/24/19 12:56 Freq: Status: Active Protocol: Document 01/24/19 16:02 EA (Rec: 01/25/19 14:13 EA [id number]) OP Mobility Evaluation Bed Mobility Rolling Indep Supine to and from Sit Indep Transfers Sit to Stand indep Bed to Chair Transfers indep Floor Transfers unable OP Gait Assessment Gait Gait Assistance Required: Independent Distance (Feet) 200 Able to Maintain Weight Bearing Status Yes During Gait Assistive Devices Assistive Device None Orthotic/Prosthetic Devices or Brace: No Gait Deviations General Gait Pattern Decreased Stride Length Factors Limiting Gait Function Factors Limiting Gait Function Decreased Strength Limited Range of Motion Comments Gait Comments Increased right pelvic rotation Stair Climbing Evaluation Evaluation Level of Assist On Stairs Independent Devices Stair Climbing Assistive Devices None Technique/Endurance Stair Climbing Direction Ascend and Descend Stair Climbing Technique Step to Step PT-OP-J Posture/Palpation/Skin Start: 01/24/19 12:56 Freq: Status: Active Protocol: Document 01/24/19 16:02 EA (Rec: 01/25/19 14:13 EA [id number]) Palpation Assessment Location One Palpation Location left hip Palpation Findings Soft Tissue Tightness Tenderness Skin Assessment Incisional Assessment Incision Appearance/Comments Wound is close with no signs of secondary healing. PT-OP-K Range of Motion Start: 01/24/19 12:56 Freq: Status: Active Protocol: Document 01/24/19 16:02 EA (Rec: 01/25/19 14:13 EA [id number]) Hip Goniometric Range of Motion Hip Measured in Degrees Right Active Hip ROM WFL Yes Left Active Testing Position Supine Flexion w/Knee Flexed 90 Extension 5 Abduction 20 External Rotation 30 Hip ROM Limitations Hip ROM Limitations Soft Tissue Tightness Comments pre-cautions Knee Goniometric Range of Motion Knee Measured in Degrees Right Knee ROM WFL Yes Left Knee ROM WFL Yes PT-OP-M Strength Start: 01/24/19 12:56 Freq: Status: Active Protocol: Document 01/24/19 16:02 EA (Rec: 01/25/19 14:13 EA [id number]) Hip Strength Hip Manual Muscle Testing Left Flexion (L2) 3+ Fair+ Extension (S1) 4- Good- Abduction 4- Good- Adduction 4 Good External Rotation 4- Good- Internal Rotation 4- Good- Right Reason Not Measured WFL Knee Strength Knee Manual Muscle Testing Right Flexion (S2) 5 Normal Extension (L3) 5 Normal Left Flexion (S2) 5 Normal Extension (L3) 5 Normal PT-OP-Q Treatments Start: 01/24/19 12:56 Freq: Status: Active Protocol: Document 02/01/19 15:13 EA (Rec: 02/01/19 15:17 EA [id number]) Cardio Equipment Recumbent Stepper (Sci-Fit) Duration (Minutes) 8 Resistance 3.5 Seat Position 15 Other no hand support Gym Equipment Shuttle Recovery Unilateral Squats Resistance 62 Shuttle Recovery Platform Stable Reps/Time 20 Bilateral Squats Resistance 125 Shuttle Recovery Platform Stable Reps/Time 30 Sport Cord 1 Exercise Details side stegp squat Cord/Resistance blue Reps/Duration x 6 laps Therapeutic Exercises Supine Exercises 2 Supine Exercise Name Bridge w/ Isomet hip ABD Resistance GTB Reps/Minutes x 10 reps x 2 sets 1 Supine Exercise Name SLR Resistance 2# Reps/Minutes x 10 reps x 2 Sidelying Exercises 3 Sidelying Exercise Name Passive stretch to left hip flexors Reps/Minutes x 30SH x 2 reps 2 Sidelying Exercise Name Hip ABD Resistance 2 lbs Reps/Minutes x 10 reps Comments piullow inbet knees 1 Sidelying Exercise Name Clamshell Reps/Minutes x 15 reps x 2 sets Comments stabilize pelvis Sitting Exercises 2 Sitting Exercise Name Hip IR Resistance Lv2 Reps/Minutes x 10 reps x 2 Comments start from ER to neutral range to prevent full IR 1 Sitting Exercise Name Hip ER Resistance Lv2 Reps/Minutes x 12 reps x 2 Standing Exercises 1 Standing Exercise Name Stairs hip flexors stretch Reps/Minutes x 30 SH x 2 reps Other Exercises 1 Other Exercise Name SLS Resistance blue bungee Reps/Minutes x 5 secs x 3 reps PT-OP-T Assessment and Plan Start: 01/24/19 12:56 Freq: Status: Active Protocol: Document 02/01/19 15:13 EA (Rec: 02/01/19 15:17 EA [id number]) Physical Therapy Assessment Assessment Summary Assessment Pt tolerated treamtent with no discomfort noted. Cont with current plan progress as necessary Physical Therapy Plan Next Visit Focus/Plan Next Note Type Treatment Note Next Visit Plan Provide HEP images
--- NOTE | 2019-02-10 11:00 | PT.OTN ---
Current Diagnoses Unilateral primary osteoarthritis, left hip (02/10/19) Physical Therapy Treatment Note PT-OP-A Visit Information Start: 01/24/19 12:56 Freq: Status: Active Protocol: Document 02/10/19 11:00 DLM (Rec: 02/10/19 18:46 DLM [id number]) Out-Patient Physical Therapy Visit Information Visit Information Visit Type Treatment Note Visit Start Time 11:00 Visit Stop Time 11:50 Total Visit Minutes 50 Visit Number 4 Evaluation Information Evaluation Date 01/25/19 Precautions Precautions 2 months reaming for post JOSH pre-caution posterior approach PT-OP-B Current Condition Start: 01/24/19 12:56 Freq: Status: Active Protocol: Document 01/24/19 16:02 EA (Rec: 01/25/19 14:13 EA [id number]) Current Condition History of Current Condition Onset Date s/p Left JOSH 12/15/18 Current Complaints hip weakness and and slight pain History of Current Condition Patient is s/p JOSH 12/15/18 and had formal PT at [facility]; states he has great recovery in terms of mobility and pain. He is currently staying at [place] and intended to stay until he recovers fully. Prior Treatments and Tests 1- 5 weeks post hip surgery PT treament at and [place]. 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 Functional Limitations- Mobility/Gait independent with no AD but Limited with long distance ambulation and uneven surfaces Functional Limitations- Work/School Independent Functional Limitations- Recreation/ Limited daily walks to less Hobbies than a mile PT-OP-C Subjective Start: 01/24/19 12:56 Freq: Status: Active Protocol: Document 02/10/19 11:00 DLM (Rec: 02/10/19 18:46 DLM [id number]) OP-PT Subjective Patient Comments Patient Comments He reports he has not been sleeping with a pillow between his knees. He gets stiff if he sits for any length of time . Patient Reported Progress Improving PT-OP-D Balance Start: 01/24/19 12:56 Freq: Status: Active Protocol: Document 01/24/19 17:35 EA (Rec: 01/25/19 14:13 EA [id number]) Balance Tests Single Limb Standing Single Limb- Right > 10 secs Single Limb- Left < 4 secs PT-OP-F Manual Assessment Start: 01/24/19 12:56 Freq: Status: Active Protocol: Document 01/24/19 16:02 EA (Rec: 01/25/19 14:13 EA [id number]) Manual Assessments Soft Tissue Assessment Soft Tissue Mobility Assessment Tight hip flexors, RF. PT-OP-G Mobility & Gait Start: 01/24/19 12:56 Freq: Status: Active Protocol: Document 01/24/19 16:02 EA (Rec: 01/25/19 14:13 EA [id number]) OP Mobility Evaluation Bed Mobility Rolling Indep Supine to and from Sit Indep Transfers Sit to Stand indep Bed to Chair Transfers indep Floor Transfers unable OP Gait Assessment Gait Gait Assistance Required: Independent Distance (Feet) 200 Able to Maintain Weight Bearing Status Yes During Gait Assistive Devices Assistive Device None Orthotic/Prosthetic Devices or Brace: No Gait Deviations General Gait Pattern Decreased Stride Length Factors Limiting Gait Function Factors Limiting Gait Function Decreased Strength Limited Range of Motion Comments Gait Comments Increased right pelvic rotation Stair Climbing Evaluation Evaluation Level of Assist On Stairs Independent Devices Stair Climbing Assistive Devices None Technique/Endurance Stair Climbing Direction Ascend and Descend Stair Climbing Technique Step to Step PT-OP-J Posture/Palpation/Skin Start: 01/24/19 12:56 Freq: Status: Active Protocol: Document 01/24/19 16:02 EA (Rec: 01/25/19 14:13 EA [id number]) Palpation Assessment Location One Palpation Location left hip Palpation Findings Soft Tissue Tightness Tenderness Skin Assessment Incisional Assessment Incision Appearance/Comments Wound is close with no signs of secondary healing. PT-OP-K Range of Motion Start: 01/24/19 12:56 Freq: Status: Active Protocol: Document 01/24/19 16:02 EA (Rec: 01/25/19 14:13 EA [id number]) Hip Goniometric Range of Motion Hip Measured in Degrees Right Active Hip ROM WFL Yes Left Active Testing Position Supine Flexion w/Knee Flexed 90 Extension 5 Abduction 20 External Rotation 30 Hip ROM Limitations Hip ROM Limitations Soft Tissue Tightness Comments pre-cautions Knee Goniometric Range of Motion Knee Measured in Degrees Right Knee ROM WFL Yes Left Knee ROM WFL Yes PT-OP-M Strength Start: 01/24/19 12:56 Freq: Status: Active Protocol: Document 01/24/19 16:02 EA (Rec: 01/25/19 14:13 EA [id number]) Hip Strength Hip Manual Muscle Testing Left Flexion (L2) 3+ Fair+ Extension (S1) 4- Good- Abduction 4- Good- Adduction 4 Good External Rotation 4- Good- Internal Rotation 4- Good- Right Reason Not Measured WFL Knee Strength Knee Manual Muscle Testing Right Flexion (S2) 5 Normal Extension (L3) 5 Normal Left Flexion (S2) 5 Normal Extension (L3) 5 Normal PT-OP-Q Treatments Start: 01/24/19 12:56 Freq: Status: Active Protocol: Document 02/10/19 11:00 DLM (Rec: 02/10/19 18:46 DLM [id number]) Cardio Equipment Recumbent Stepper (Sci-Fit) Duration (Minutes) 8 Resistance 3.5 Seat Position 15 Other no hand support Gym Equipment Shuttle Recovery Unilateral Squats Resistance 62# Shuttle Recovery Platform Stable Reps/Time 20 Bilateral Squats Resistance 125# Shuttle Recovery Platform Stable Reps/Time 30 Therapeutic Exercises Supine Exercises 3 Supine Exercise Name hip flexor stretch off edge of bed Side left Resistance passive 2 Supine Exercise Name Bridge w/ Isomet hip ABD Resistance L2 exercise band Reps/Minutes 10 reps x 2 sets Prone Exercises 2 Prone Exercise Name hip extension Side bilateral Reps/Minutes x 10 reps each 1 Prone Exercise Name hip flexor stretch Side bilateral Resistance passive Sidelying Exercises 2 Sidelying Exercise Name Hip ABD Resistance 2 lbs Reps/Minutes x 10 reps Comments pillow between knees 1 Sidelying Exercise Name Clamshell Equipment Used pillow between knees Reps/Minutes x 15 reps x 2 sets Comments stabilize pelvis Other Exercises 1 Other Exercise Name SLS Reps/Minutes 5 reps Self-Care/Home Management Treatment Education Other Education education to use pillow between knees if he lies on right side to avoid dislocation PT-OP-T Assessment and Plan Start: 01/24/19 12:56 Freq: Status: Active Protocol: Document 02/10/19 11:00 DLM (Rec: 02/10/19 18:46 DLM [id number]) Physical Therapy Assessment Goals One Impairment Distance amb [facility] Goal (LTG) Patient ambulate > 2 miles LTG Duration 4 wks strength Short Term Goal (STG) Pt will be indep with HEP STG Duration 2 wks [facility] Goal (LTG) Pt will have 5/5 LE and [place] difficulty. LTG Duration 4 wks gait Impairment Impaired mobility Short Term Goal (STG) Pt will be able to amb without AD with no gait deviations safely. STG Duration 2 wk Clinical Pathologist Goal (LTG) Pt will be able to amb up/down stairs reciprocally without rail safely. LTG Duration 4 wks LEFS Impairment LEFS Short Term Goal (STG) Pt will inc to score of 42 to show improved functional independence. STG Duration 2 wks [facility] Goal (LTG) Pt will inc to score of 60 to demonstrate improved functional ability. LTG Duration 4 wks Progress Towards Goals Progress Towards Goals Progressing Toward Goals Assessment Summary Assessment He tolerated treatment session well. His functional strength continue to improve. No increase in pain with exercises. Pt continue to report stiffness in his hip. Physical Therapy Plan Frequency and Duration Frequency of Treatment 2x/Week Duration of Treatment 2 months Plan of Care Start Date 01/24/19 Plan of Care End Date 03/21/19 Therapeutic Interventions Therapeutic Interventions Aquatic Therapy Balance Training Gait Training Home Exercise Program Joint Mobilizations Manual Therapy Neuromuscular Re-education Patient/Caregiver Education Self-Care/Home Management Soft Tissue Mobilization Taping Therapeutic Activities Therapeutic Exercises Modalities Cold Pack/Ice Massage Electric Stimulation Hot Packs Ultrasound Next Visit Focus/Plan Next Note Type Treatment Note Next Visit Plan Provide HEP images
--- NOTE | 2019-02-13 15:15 | PT.OTN ---
Current Diagnoses Unilateral primary osteoarthritis, left hip (02/13/19) Physical Therapy Treatment Note PT-OP-A Visit Information Start: 01/24/19 12:56 Freq: Status: Active Protocol: Document 02/13/19 15:15 DLM (Rec: 02/13/19 17:10 DLM [id number]) Out-Patient Physical Therapy Visit Information Visit Information Visit Type Treatment Note Visit Start Time 15:15 Visit Stop Time 16:00 Total Visit Minutes 45 Visit Number 5 Number of GLUELINE WORKER Visits 0 Evaluation Information Evaluation Date 01/25/19 Precautions Precautions 2 months reaming for post JOSH pre-caution posterior approach PT-OP-B Current Condition Start: 01/24/19 12:56 Freq: Status: Active Protocol: Document 01/24/19 16:02 EA (Rec: 01/25/19 14:13 EA [id number]) Current Condition History of Current Condition Onset Date s/p JOSH 12/15/18 Current Complaints hip weakness and and slight pain History of Current Condition Patient is s/p JOSH 12/15/18 and had formal PT at [facility]; states he has great recovery in terms of mobility and pain. He is currently staying at [place] and intended to stay until he recovers fully. Prior Treatments and Tests 1- 5 weeks post hip surgery PT treament at and [place]. 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 Functional Limitations- Mobility/Gait independent with no AD but Limited with long distance ambulation and uneven surfaces Functional Limitations- Work/School Independent Functional Limitations- Recreation/ Limited daily walks to less Hobbies than a mile PT-OP-C Subjective Start: 01/24/19 12:56 Freq: Status: Active Protocol: Document 02/13/19 15:15 DLM (Rec: 02/13/19 17:10 DLM [id number]) OP-PT Subjective Patient Comments Patient Comments He was able to work out in the yard with no increase in pain . Patient Reported Progress Improving PT-OP-D Balance Start: 01/24/19 12:56 Freq: Status: Active Protocol: Document 01/24/19 17:35 EA (Rec: 01/25/19 14:13 EA [id number]) Balance Tests Single Limb Standing Single Limb- Right > 10 secs Single Limb- Left < 4 secs PT-OP-F Manual Assessment Start: 01/24/19 12:56 Freq: Status: Active Protocol: Document 01/24/19 16:02 EA (Rec: 01/25/19 14:13 EA [id number]) Manual Assessments Soft Tissue Assessment Soft Tissue Mobility Assessment Tight hip flexors, RF. PT-OP-G Mobility & Gait Start: 01/24/19 12:56 Freq: Status: Active Protocol: Document 01/24/19 16:02 EA (Rec: 01/25/19 14:13 EA [id number]) OP Mobility Evaluation Bed Mobility Rolling Indep Supine to and from Sit Indep Transfers Sit to Stand indep Bed to Chair Transfers indep Floor Transfers unable OP Gait Assessment Gait Gait Assistance Required: Independent Distance (Feet) 200 Able to Maintain Weight Bearing Status Yes During Gait Assistive Devices Assistive Device None Orthotic/Prosthetic Devices or Brace: No Gait Deviations General Gait Pattern Decreased Stride Length Factors Limiting Gait Function Factors Limiting Gait Function Decreased Strength Limited Range of Motion Comments Gait Comments Increased right pelvic rotation Stair Climbing Evaluation Evaluation Level of Assist On Stairs Independent Devices Stair Climbing Assistive Devices None Technique/Endurance Stair Climbing Direction Ascend and Descend Stair Climbing Technique Step to Step PT-OP-J Posture/Palpation/Skin Start: 01/24/19 12:56 Freq: Status: Active Protocol: Document 01/24/19 16:02 EA (Rec: 01/25/19 14:13 EA [id number]) Palpation Assessment Location One Palpation Location left hip Palpation Findings Soft Tissue Tightness Tenderness Skin Assessment Incisional Assessment Incision Appearance/Comments Wound is close with no signs of secondary healing. PT-OP-K Range of Motion Start: 01/24/19 12:56 Freq: Status: Active Protocol: Document 01/24/19 16:02 EA (Rec: 01/25/19 14:13 EA [id number]) Hip Goniometric Range of Motion Hip Measured in Degrees Right Active Hip ROM WFL Yes Left Active Testing Position Supine Flexion w/Knee Flexed 90 Extension 5 Abduction 20 External Rotation 30 Hip ROM Limitations Hip ROM Limitations Soft Tissue Tightness Comments pre-cautions Knee Goniometric Range of Motion Knee Measured in Degrees Right Knee ROM WFL Yes Left Knee ROM WFL Yes PT-OP-M Strength Start: 01/24/19 12:56 Freq: Status: Active Protocol: Document 01/24/19 16:02 EA (Rec: 01/25/19 14:13 EA [id number]) Hip Strength Hip Manual Muscle Testing Left Flexion (L2) 3+ Fair+ Extension (S1) 4- Good- Abduction 4- Good- Adduction 4 Good External Rotation 4- Good- Internal Rotation 4- Good- Right Reason Not Measured WFL Knee Strength Knee Manual Muscle Testing Right Flexion (S2) 5 Normal Extension (L3) 5 Normal Left Flexion (S2) 5 Normal Extension (L3) 5 Normal PT-OP-Q Treatments Start: 01/24/19 12:56 Freq: Status: Active Protocol: Document 02/13/19 15:15 DLM (Rec: 02/13/19 17:10 DLM [id number]) Cardio Equipment Recumbent Stepper (Sci-Fit) Duration (Minutes) 8 Resistance 3.5 Seat Position 15 Other no hand support Gym Equipment Shuttle Recovery Unilateral Squats Resistance 62# Shuttle Recovery Platform Stable Reps/Time 20 Bilateral Squats Resistance 125# Shuttle Recovery Platform Stable Reps/Time 30 Therapeutic Exercises Supine Exercises 2 Supine Exercise Name Bridge w/ Isomet hip ABD Resistance L2 exercise band Reps/Minutes 10 reps x 2 sets Prone Exercises 2 Prone Exercise Name hip extension Side bilateral Reps/Minutes 2 x 10 reps each 1 Prone Exercise Name hip flexor stretch Side bilateral Resistance passive Comments prone lying Sidelying Exercises 2 Sidelying Exercise Name Hip ABD Resistance 2 lbs Reps/Minutes x 10 reps Comments pillow between knees 1 Sidelying Exercise Name Clamshell Equipment Used pillow between knees Reps/Minutes x 15 reps x 2 sets Comments stabilize pelvis Other Exercises 1 Other Exercise Name SLS Reps/Minutes 5 reps PT-OP-T Assessment and Plan Start: 01/24/19 12:56 Freq: Status: Active Protocol: Document 02/13/19 15:15 DLM (Rec: 02/13/19 17:10 [facility] [id number]) Physical Therapy Assessment Goals One Impairment Distance amb Shelter Goal (LTG) Patient ambulate > 2 miles LTG Duration 4 wks strength Short Term Goal (STG) Pt will be indep with HEP STG Duration 2 wks Mechanical Laboratory Technician Goal (LTG) Pt will have 5/5 LE and will be able to walk on the beach without difficulty. LTG Duration 4 wks gait Impairment Impaired mobility Short Term Goal (STG) Pt will be able to amb without AD with no gait deviations safely. STG Duration 2 wk Shelter Goal (LTG) Pt will be able to amb up/down stairs reciprocally without rail safely. LTG Duration 4 wks LEFS Impairment LEFS Short Term Goal (STG) Pt will inc to score of 42 to show improved functional independence. STG Duration 2 wks Shelter Goal (LTG) Pt will inc to score of 60 to demonstrate improved functional ability. LTG Duration 4 wks Progress Towards Goals Progress Towards Goals Progressing Toward Goals Physical Therapy Plan Frequency and Duration Frequency of Treatment 2x/Week Duration of Treatment 2 months Plan of Care Start Date 01/24/19 Plan of Care End Date 03/21/19 Therapeutic Interventions Therapeutic Interventions Aquatic Therapy Balance Training Gait Training Home Exercise Program Joint Mobilizations Manual Therapy Neuromuscular Re-education Patient/Caregiver Education Self-Care/Home Management Soft Tissue Mobilization Taping Therapeutic Activities Therapeutic Exercises Modalities Cold Pack/Ice Massage Electric Stimulation Hot Packs Ultrasound Next Visit Focus/Plan Next Note Type Treatment Note Next Visit Plan progress functional strengthening
--- NOTE | 2019-02-23 15:26 | PT.OTN ---
Current Diagnoses Unilateral primary osteoarthritis, left hip (02/23/19) Physical Therapy Treatment Note PT-OP-A Visit Information Start: 01/24/19 12:56 Freq: Status: Active Protocol: Document 02/23/19 15:18 SA (Rec: 02/23/19 15:25 SA [id number]) Out-Patient Physical Therapy Visit Information Visit Information Visit Type Treatment Note Visit Start Time 14:30 Visit Stop Time 15:15 Total Visit Minutes 45 Visit Number 6 Number of TREE CUTTER Visits 1 PT-OP-B Current Condition Start: 01/24/19 12:56 Freq: Status: Active Protocol: Document 01/24/19 16:02 EA (Rec: 01/25/19 14:13 EA [id number]) Current Condition History of Current Condition Onset Date s/p JOSH 12/15/18 Current Complaints hip weakness and and slight pain History of Current Condition Patient is s/p JOSH 12/15/18 and had formal PT at [facility]; states he has great recovery in terms of mobility and pain. He is currently staying at [place] and intended to stay until he recovers fully. Prior Treatments and Tests 1- 5 weeks post hip surgery PT treament at and [place]. 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 Functional Limitations- Mobility/Gait independent with no AD but Limited with long distance ambulation and uneven surfaces Functional Limitations- Work/School Independent Functional Limitations- Recreation/ Limited daily walks to less Hobbies than a mile PT-OP-C Subjective Start: 01/24/19 12:56 Freq: Status: Active Protocol: Document 02/23/19 15:18 SA (Rec: 02/23/19 15:25 SA [id number]) OP-PT Subjective Patient Comments Patient Comments Pt reports he is feeling good. Denies pain but states when he first stands up from seated position he feels stiff. Patient Reported Progress Improving PT-OP-D Balance Start: 01/24/19 12:56 Freq: Status: Active Protocol: Document 01/24/19 17:35 EA (Rec: 01/25/19 14:13 EA [id number]) Balance Tests Single Limb Standing Single Limb- Right > 10 secs Single Limb- Left < 4 secs PT-OP-F Manual Assessment Start: 01/24/19 12:56 Freq: Status: Active Protocol: Document 01/24/19 16:02 EA (Rec: 01/25/19 14:13 EA [id number]) Manual Assessments Soft Tissue Assessment Soft Tissue Mobility Assessment Tight hip flexors, RF. PT-OP-G Mobility & Gait Start: 01/24/19 12:56 Freq: Status: Active Protocol: Document 01/24/19 16:02 EA (Rec: 01/25/19 14:13 EA [id number]) OP Mobility Evaluation Bed Mobility Rolling Indep Supine to and from Sit Indep Transfers Sit to Stand indep Bed to Chair Transfers indep Floor Transfers unable OP Gait Assessment Gait Gait Assistance Required: Independent Distance (Feet) 200 Able to Maintain Weight Bearing Status Yes During Gait Assistive Devices Assistive Device None Orthotic/Prosthetic Devices or Brace: No Gait Deviations General Gait Pattern Decreased Stride Length Factors Limiting Gait Function Factors Limiting Gait Function Decreased Strength Limited Range of Motion Comments Gait Comments Increased right pelvic rotation Stair Climbing Evaluation Evaluation Level of Assist On Stairs Independent Devices Stair Climbing Assistive Devices None Technique/Endurance Stair Climbing Direction Ascend and Descend Stair Climbing Technique Step to Step PT-OP-J Posture/Palpation/Skin Start: 01/24/19 12:56 Freq: Status: Active Protocol: Document 01/24/19 16:02 EA (Rec: 01/25/19 14:13 EA [id number]) Palpation Assessment Location One Palpation Location left hip Palpation Findings Soft Tissue Tightness Tenderness Skin Assessment Incisional Assessment Incision Appearance/Comments Wound is close with no signs of secondary healing. PT-OP-K Range of Motion Start: 01/24/19 12:56 Freq: Status: Active Protocol: Document 01/24/19 16:02 EA (Rec: 01/25/19 14:13 EA [id number]) Hip Goniometric Range of Motion Hip Measured in Degrees Right Active Hip ROM WFL Yes Left Active Testing Position Supine Flexion w/Knee Flexed 90 Extension 5 Abduction 20 External Rotation 30 Hip ROM Limitations Hip ROM Limitations Soft Tissue Tightness Comments pre-cautions Knee Goniometric Range of Motion Knee Measured in Degrees Right Knee ROM WFL Yes Left Knee ROM WFL Yes PT-OP-M Strength Start: 01/24/19 12:56 Freq: Status: Active Protocol: Document 01/24/19 16:02 EA (Rec: 01/25/19 14:13 EA [id number]) Hip Strength Hip Manual Muscle Testing Left Flexion (L2) 3+ Fair+ Extension (S1) 4- Good- Abduction 4- Good- Adduction 4 Good External Rotation 4- Good- Internal Rotation 4- Good- Right Reason Not Measured WFL Knee Strength Knee Manual Muscle Testing Right Flexion (S2) 5 Normal Extension (L3) 5 Normal Left Flexion (S2) 5 Normal Extension (L3) 5 Normal PT-OP-Q Treatments Start: 01/24/19 12:56 Freq: Status: Active Protocol: Document 02/23/19 15:18 SA (Rec: 02/23/19 15:25 SA [email or web address]) Cardio Equipment Recumbent Stepper (Sci-Fit) Duration (Minutes) 8 Resistance 3.7 Seat Position 15 Other no hand support Gym Equipment Shuttle Recovery Unilateral Squats Resistance 62# Shuttle Recovery Platform Stable Reps/Time 2 x 15 Bilateral Squats Resistance 125# Shuttle Recovery Platform Stable Reps/Time 2 x 15 Shuttle Balance red clips Reps/Duration 5 min Comments squats, tandem stance, UE movements Therapeutic Exercises Supine Exercises 3 Supine Exercise Name hip flexor stretch off edge of bed Side left Resistance passive 2 Supine Exercise Name Bridge w/ Isomet hip ABD Resistance L2 exercise band Reps/Minutes 10 reps x 2 sets Prone Exercises 2 Prone Exercise Name hip extension Side bilateral Reps/Minutes 2 x 10 reps each Sidelying Exercises 2 Sidelying Exercise Name Hip ABD Resistance 2 lbs Reps/Minutes x 10 reps Comments pillow between knees Standing Exercises squat Standing Exercise Name Side step squat Resistance GTB Reps/Minutes x 12 ft x 2 lines Other Exercises step ups Equipment Used 6 step Reps/Minutes 20x Comments LLE up/RLE down 1 Other Exercise Name SLS Side left Reps/Minutes 5 reps Comments progressed to foam PT-OP-T Assessment and Plan Start: 01/24/19 12:56 Freq: Status: Active Protocol: Document 02/23/19 15:18 SA (Rec: 02/23/19 15:25 SA [email or web address]) Physical Therapy Assessment Assessment Summary Assessment Review of HEP and hand out provided, pt has TB at home. Consistent with HE[p and progressing well with strength and balance. Physical Therapy Plan Next Visit Focus/Plan Next Note Type Treatment Note Next Visit Plan progress functional strengthening and dynamic balance.
--- NOTE | 2019-02-28 18:44 | PT.OTN ---
Current Diagnoses Unilateral primary osteoarthritis, left hip (02/28/19) Physical Therapy Treatment Note PT-OP-A Visit Information Start: 01/24/19 12:56 Freq: Status: Active Protocol: Document 02/28/19 16:55 HH (Rec: 02/28/19 18:43 HH [email or web address]) Out-Patient Physical Therapy Visit Information Visit Information Visit Type Treatment Note Visit Start Time 16:55 Visit Stop Time 17:40 Total Visit Minutes 45 Visit Number 7 Number of IT SUPPORT CONSULTANT Visits 0 PT-OP-B Current Condition Start: 01/24/19 12:56 Freq: Status: Active Protocol: Document 01/24/19 16:02 EA (Rec: 01/25/19 14:13 EA [id number]) Current Condition History of Current Condition Onset Date s/p JOSH 12/15/18 Current Complaints hip weakness and and slight pain History of Current Condition Patient is s/p JOSH 12/15/18 and had formal PT at [facility]; states he has great recovery in terms of mobility and pain. He is currently staying at [place] and intended to stay until he recovers fully. Prior Treatments and Tests 1- 5 weeks post hip surgery PT treament at and [place]. 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 Functional Limitations- Mobility/Gait independent with no AD but Limited with long distance ambulation and uneven surfaces Functional Limitations- Work/School Independent Functional Limitations- Recreation/ Limited daily walks to less Hobbies than a mile PT-OP-C Subjective Start: 01/24/19 12:56 Freq: Status: Active Protocol: Document 02/28/19 16:55 HH (Rec: 02/28/19 18:43 HH [email or web address]) OP-PT Subjective Patient Comments Patient Comments Im pretty much >90% recovered . Just standing up from prolonged sitting tends to feel stiff at my hip. I've been doing all my ex. Patient Reported Progress Improving PT-OP-D Balance Start: 01/24/19 12:56 Freq: Status: Active Protocol: Document 01/24/19 17:35 EA (Rec: 01/25/19 14:13 EA [id number]) Balance Tests Single Limb Standing Single Limb- Right > 10 secs Single Limb- Left < 4 secs PT-OP-F Manual Assessment Start: 01/24/19 12:56 Freq: Status: Active Protocol: Document 01/24/19 16:02 EA (Rec: 01/25/19 14:13 EA [id number]) Manual Assessments Soft Tissue Assessment Soft Tissue Mobility Assessment Tight hip flexors, RF. PT-OP-G Mobility & Gait Start: 01/24/19 12:56 Freq: Status: Active Protocol: Document 01/24/19 16:02 EA (Rec: 01/25/19 14:13 EA [id number]) OP Mobility Evaluation Bed Mobility Rolling Indep Supine to and from Sit Indep Transfers Sit to Stand indep Bed to Chair Transfers indep Floor Transfers unable OP Gait Assessment Gait Gait Assistance Required: Independent Distance (Feet) 200 Able to Maintain Weight Bearing Status Yes During Gait Assistive Devices Assistive Device None Orthotic/Prosthetic Devices or Brace: No Gait Deviations General Gait Pattern Decreased Stride Length Factors Limiting Gait Function Factors Limiting Gait Function Decreased Strength Limited Range of Motion Comments Gait Comments Increased right pelvic rotation Stair Climbing Evaluation Evaluation Level of Assist On Stairs Independent Devices Stair Climbing Assistive Devices None Technique/Endurance Stair Climbing Direction Ascend and Descend Stair Climbing Technique Step to Step PT-OP-J Posture/Palpation/Skin Start: 01/24/19 12:56 Freq: Status: Active Protocol: Document 01/24/19 16:02 EA (Rec: 01/25/19 14:13 EA [id number]) Palpation Assessment Location One Palpation Location left hip Palpation Findings Soft Tissue Tightness Tenderness Skin Assessment Incisional Assessment Incision Appearance/Comments Wound is close with no signs of secondary healing. PT-OP-K Range of Motion Start: 01/24/19 12:56 Freq: Status: Active Protocol: Document 01/24/19 16:02 EA (Rec: 01/25/19 14:13 EA [id number]) Hip Goniometric Range of Motion Hip Right Active Hip ROM WFL Yes Left Active Testing Position Supine Flexion w/Knee Flexed 90 Extension 5 Abduction 20 External Rotation 30 Hip ROM Limitations Hip ROM Limitations Soft Tissue Tightness Comments pre-cautions Knee Goniometric Range of Motion Knee Right Knee ROM WFL Yes Left Knee ROM WFL Yes PT-OP-M Strength Start: 01/24/19 12:56 Freq: Status: Active Protocol: Document 01/24/19 16:02 EA (Rec: 01/25/19 14:13 EA [id number]) Hip Strength Hip Manual Muscle Testing Left Flexion (L2) 3+ Fair+ Extension (S1) 4- Good- Abduction 4- Good- Adduction 4 Good External Rotation 4- Good- Internal Rotation 4- Good- Right Reason Not Measured WFL Knee Strength Knee Manual Muscle Testing Right Flexion (S2) 5 Normal Extension (L3) 5 Normal Left Flexion (S2) 5 Normal Extension (L3) 5 Normal PT-OP-Q Treatments Start: 01/24/19 12:56 Freq: Status: Active Protocol: Document 02/28/19 16:55 HH (Rec: 02/28/19 18:43 HH [email or web address]) Cardio Equipment Recumbent Stepper (Sci-Fit) Duration (Minutes) 8 Resistance 5 Seat Position 8 Other no hand support Gym Equipment Shuttle Recovery Unilateral Squats Resistance 75# Shuttle Recovery Platform Stable Reps/Time 2 x 15 Bilateral Squats Resistance 150# Shuttle Recovery Platform Stable Reps/Time 2 x 15 Therapeutic Exercises Standing Exercises mongolian deadlift Standing Exercise Name single leg Side bilateral Equipment Used on blue foam Reps/Minutes 7 mins Comments cues on hip hinge hip CAR Side bilateral Equipment Used foot step over cones Reps/Minutes 8 mins Comments cues for slow active ROM Other Exercises step ups Side bilateral Equipment Used 6 - 8 'step Reps/Minutes 10 mins Comments cues on slow movements , LLE up/RLE down 1 Other Exercise Name SLS Reps/Minutes 5 mins Comments blue foam, and reach for cones crossing midline PT-OP-T Assessment and Plan Start: 01/24/19 12:56 Freq: Status: Active Protocol: Document 02/28/19 16:55 HH (Rec: 02/28/19 18:43 HH [email or web address]) Physical Therapy Assessment Assessment Summary Assessment pt cont progress. His single leg balance is quite close between R and L. Still c/o slight discomfort during single leg step on 8 inch step . Pt states he thinks he is ready to be d/c for next visit since he thinks he is >90% recovered. Willing to review HEP and precautions for next visit. Physical Therapy Plan Next Visit Focus/Plan Next Note Type Discharge Summary Next Visit Plan progress functional strengthening and dynmaic balance.
--- NOTE | 2019-03-02 18:34 | PT.OTN ---
Current Diagnoses Unilateral primary osteoarthritis, left hip (03/02/19) Physical Therapy Treatment Note PT-OP-A Visit Information Start: 01/24/19 12:56 Freq: Status: Active Protocol: Document 03/02/19 08:15 HH (Rec: 03/02/19 18:34 HH [email or web address]) Out-Patient Physical Therapy Visit Information Visit Information Visit Type Discharge Summary Visit Start Time 08:15 Visit Stop Time 09:00 Total Visit Minutes 45 Visit Number 8 Number of BUYER BROKER Visits 0 PT-OP-B Current Condition Start: 01/24/19 12:56 Freq: Status: Active Protocol: Document 01/24/19 16:02 EA (Rec: 01/25/19 14:13 EA [id number]) Current Condition History of Current Condition Onset Date s/p JOSH 12/15/18 Current Complaints hip weakness and and slight pain History of Current Condition Patient is s/p JOSH 12/15/18 and had formal PT at [facility] [place]; states he has great recovery in terms of mobility and pain. He is currently staying at [place] and intended to stay until he recovers fully. Prior Treatments and Tests 1- 5 weeks post hip surgery PT treament at and [place]. 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 Functional Limitations- Mobility/Gait independent with no AD but Limited with long distance ambulation and uneven surfaces Functional Limitations- Work/School Independent Functional Limitations- Recreation/ Limited daily walks to less Hobbies than a mile PT-OP-C Subjective Start: 01/24/19 12:56 Freq: Status: Active Protocol: Document 03/02/19 08:15 HH (Rec: 03/02/19 18:34 HH [email or web address]) OP-PT Subjective Patient Comments Patient Comments I am ready to be dischaged now. Im doing good. Patient Reported Progress Improving PT-OP-D Balance Start: 01/24/19 12:56 Freq: Status: Active Protocol: Document 03/02/19 08:15 HH (Rec: 03/02/19 18:34 HH [email or web address]) Balance Tests Single Limb Standing Single Limb- Right >1 min Single Limb- Left > 1 min PT-OP-F Manual Assessment Start: 01/24/19 12:56 Freq: Status: Active Protocol: Document 01/24/19 16:02 EA (Rec: 01/25/19 14:13 EA [id number]) Manual Assessments Soft Tissue Assessment Soft Tissue Mobility Assessment Tight hip flexors, RF. PT-OP-G Mobility & Gait Start: 01/24/19 12:56 Freq: Status: Active Protocol: Document 01/24/19 16:02 EA (Rec: 01/25/19 14:13 EA [id number]) OP Mobility Evaluation Bed Mobility Rolling Indep Supine to and from Sit Indep Transfers Sit to Stand indep Bed to Chair Transfers indep Floor Transfers unable OP Gait Assessment Gait Gait Assistance Required: Independent Distance (Feet) 200 Able to Maintain Weight Bearing Status Yes During Gait Assistive Devices Assistive Device None Orthotic/Prosthetic Devices or Brace: No Gait Deviations General Gait Pattern Decreased Stride Length Factors Limiting Gait Function Factors Limiting Gait Function Decreased Strength Limited Range of Motion Comments Gait Comments Increased right pelvic rotation Stair Climbing Evaluation Evaluation Level of Assist On Stairs Independent Devices Stair Climbing Assistive Devices None Technique/Endurance Stair Climbing Direction Ascend and Descend Stair Climbing Technique Step to Step PT-OP-J Posture/Palpation/Skin Start: 01/24/19 12:56 Freq: Status: Active Protocol: Document 01/24/19 16:02 EA (Rec: 01/25/19 14:13 EA [id number]) Palpation Assessment Location One Palpation Location left hip Palpation Findings Soft Tissue Tightness Tenderness Skin Assessment Incisional Assessment Incision Appearance/Comments Wound is close with no signs of secondary healing. PT-OP-K Range of Motion Start: 01/24/19 12:56 Freq: Status: Active Protocol: Document 03/02/19 08:15 HH (Rec: 03/02/19 18:34 HH [email or web address]) Hip Goniometric Range of Motion Hip Right Active Hip ROM WFL Yes Left Active Hip ROM WFL Yes PT-OP-M Strength Start: 01/24/19 12:56 Freq: Status: Active Protocol: Document 03/02/19 08:15 HH (Rec: 03/02/19 18:34 [email or web address]) Hip Strength Hip Manual Muscle Testing Left Reason Not Measured WFL Right Reason Not Measured WFL PT-OP-Q Treatments Start: 01/24/19 12:56 Freq: Status: Active Protocol: Document 03/02/19 08:15 HH (Rec: 03/02/19 18:34 [email or web address]) Therapeutic Exercises Standing Exercises balance with sliders Standing Exercise Name foward, lateral and backward Side bilateral Equipment Used sliders Reps/Minutes 15 mins Comments cues on hip hinge hungarian deadlift Standing Exercise Name single leg Side bilateral Equipment Used on blue foam Reps/Minutes 7 mins Comments cues on hip hinge hip CAR Side bilateral Equipment Used foot step over cones Reps/Minutes 5 mins Comments cues for slow active ROM squat Standing Exercise Name squat Equipment Used 4inch box under R foot Reps/Minutes 10 x 3 Comments increase LLE WB awareness Other Exercises step ups Side bilateral Equipment Used 6 - 8 'step Reps/Minutes 10 mins Comments cues on slow movements , LLE up/RLE down 1 Other Exercise Name SLS Reps/Minutes 5 mins Comments blue foam, and reach for cones crossing midline PT-OP-T Assessment and Plan Start: 01/24/19 12:56 Freq: Status: Active Protocol: Document 03/02/19 08:15 HH (Rec: 03/02/19 18:34 [email or web address]) Physical Therapy Assessment Goals One Detention Goal (LTG) goal met : able to tolerate > 2miles without pain strength [employer] Manager Goal (LTG) goal met : 5/5 MMT for LLE, able to walk on beach without difficulty gait [employer] Manager Goal (LTG) goal met: without UE support Progress Towards Goals Progress Towards Goals Goals Met Assessment Summary Assessment Pt progress well since IE and d/c from therapy today. Pt returned to PLOF and reach WFL for hip strength and ROM. New HEP with sliders and squat with box underneath on R foot to increase WB awareness on LLE. Physical Therapy Plan Discharge Physical Therapy Discharge Reasons Goals Met Next Visit Focus/Plan Next Note Type Discharge Summary
== END 2019-03-08 16:43 | disposition home or self-care (01) ==
LOC: PHYS 08:15
PROVIDERS: PCP Family Medicine Sports Medicine; Visit Provider Orthopaedic Surgery
DX: M16.12 Unilateral primary osteoarthritis, left hip (principal)
CPT/HCPCS: 97110; 97161; 97535